=== PATIENT | male | born 1995 | race Two or more races ===

== ENCOUNTER 2016-04-27 14:34 | Emergency (ER) | payer OTHER ==
[2016-04-27 14:48] VITALS: BP 123/69; PULSE 63; RESP 16; TEMP 97.7; O2SAT 97
[2016-04-27] MEDS ORDERED: IBUPROFEN 600 MG TAB PO ONE (14:48)
--- NOTE | 2016-04-27 15:47 | UCPHY ---
H & P Time Seen by Provider: 04/27/16 15:05 Patient Type: Established HPI/ROS: 21-year-old male presents complaining of sore throat for 2 days. No associated symptoms, no cough no fever no chills. He does state that he has been more fatigued than usual. Review of systems As per HPI General no fever no chills no weakness, positive fatigue HEENT no eye pain no eye discharge. No eye redness, positive sore throat Respiratory no cough, no shortness of breath Cardiac no chest pain, no peripheral edema GI no abdominal pain, no diarrhea, no constipation, no nausea, no vomiting no flank pain, no hematuria, no dysuria Musculoskeletal no myalgias, no joint pain Heme no easy bruising, no easy bleeding Endo no polyuria, no polydipsia Skin no rashes, no pruritus Neuro no syncope, no dizziness, no headaches Psych is no suicidal ideation, no homicidal ideation Past Medical/Surgical History: Noncontributory Social History: Alcohol socially, denies drug use Smoking Status: Former smoker Physical Exam: 21-year-old male Alert and oriented in no acute distress nontoxic appearance, afebrile Atraumatic normocephalic Extraocular muscles intact, anicteric Neck-supple, positive anterior cervical lymphadenopathy mildly tender to palpation Oropharynx positive enlarged tonsils, erythematous, no uvular deviation, no purulent exudate, tolerating own secretions, no trismus Lungs clear to auscultation bilaterally Heart regular rate and rhythm Abdomen normoactive bowel sounds soft nontender Extremities no cyanosis clubbing edema Skin no rash Constitutional: Initial Vital Signs Temperature (C) 36.5 C 04/27/16 14:47 Heart Rate 63 04/27/16 14:47 Respiratory Rate 16 04/27/16 14:47 Blood Pressure 123/69 H 04/27/16 14:47 O2 Sat (%) 97 04/27/16 14:47 O2 Delivery Mode Room Air Allergies/Adverse Reactions: No Known Allergies Allergy (Verified 04/27/16 14:48) Home Medications: Medication Instructions Recorded NK [No Known Home Meds] 04/27/16 Medical Decision Making ED Course/Re-evaluation: Patient seen and evaluated for sore throat of 1-2 days duration with some fatigue otherwise no significant associated symptoms. Rapid strep negative Strep culture pending Hardeman negative Differential diagnosis considered Viral pharyngitis, strep pharyngitis, mono Impression Viral pharyngitis Plan Symptomatic care Will follow with patient if prolong strep culture is positive. - Data Points Laboratory Results: 04/27/16 04/27/16 04/27/16 Unknown 15:30 14:48 Monoscreen NEGATIVE (NEGATIVE) Group A Strep Screen NEGATIVE (NEGATIVE) Group A Strep DNA Pending Medications Given: Discontinued Medications Ibuprofen (Motrin) 600 mg PO EDNOW ONE Stop: 04/27/16 14:49 Last Admin: 04/27/16 14:49 Dose: 600 mg Departure - Departure Disposition: Home, Routine, Self-Care Clinical Impression: Acute pharyngitis Condition: Good Instructions: Pharyngitis (ED) Referrals: NONE *PRIMARY CARE P,. [Primary Care Provider] - As per Instructions Stand Alone Forms: Work Excuse - PQRS PQRS Measurement: na
== END 2016-04-27 16:00 | disposition home or self-care (01) ==
LOC: CED 14:34
DX: J02.9 Acute pharyngitis, unspecified (principal); Z87.891 Personal history of nicotine dependence
CPT/HCPCS: 86308-PO; 87880-PO; 99214-PO; G0463-PO

== ENCOUNTER 2016-05-03 13:36 | Emergency (ER) | payer OTHER ==
[2016-05-03 13:45] VITALS: BP 136/47; PULSE 65; RESP 16; TEMP 98.4; O2SAT 97
--- NOTE | 2016-05-03 14:17 | UCPHY ---
H & P Time Seen by Provider: 05/03/16 13:49 Patient Type: Established HPI/ROS: 21-year-old male presents complaining of severe left ear pain and cannot hear out of his left ear that began suddenly today. He has had a sore throat for approximately 1 week. He was seen in urgent care in tested negative for strep. Review of systems As per HPI-cold symptoms and left ear pain General no fever no chills no weakness HEENT no eye pain no eye discharge. No eye redness, positive sore throat Respiratory no cough, no shortness of breath Cardiac no chest pain, no peripheral edema GI no abdominal pain, no diarrhea, no constipation, no nausea, no vomiting no flank pain, no hematuria, no dysuria Musculoskeletal no myalgias, no joint pain Heme no easy bruising, no easy bleeding Endo no polyuria, no polydipsia Skin no rashes, no pruritus Neuro no syncope, no dizziness, no headaches Psych is no suicidal ideation, no homicidal ideation Past Medical/Surgical History: Noncontributory Social History: Denies alcohol or drug use Smoking Status: Former smoker Physical Exam: Alert and oriented nontoxic appearance, no acute distress afebrile Atraumatic normocephalic Extraocular muscles intact, anicteric Nares mild yellowish discharge Left TM erythematous bulging, left canal also erythematous Right TM and canal normal Oropharynx mild erythema no tonsillar swelling no exudate no uvular deviation, tolerating own secretions Neck supple no lymphadenopathy Lungs clear to auscultation bilaterally Heart regular rate and rhythm Abdomen normoactive bowel sounds soft nontender Extremities no cyanosis clubbing or edema Skin no rash Constitutional: Initial Vital Signs Temperature (C) 36.9 C 05/03/16 13:40 Heart Rate 65 05/03/16 13:40 Respiratory Rate 16 05/03/16 13:40 Blood Pressure 136/47 H 05/03/16 13:40 O2 Sat (%) 97 05/03/16 13:40 O2 Delivery Mode Room Air Allergies/Adverse Reactions: No Known Allergies Allergy (Verified 05/03/16 13:45) Home Medications: Medication Instructions Recorded Amoxicillin/Clavulanate Pot 875 mg PO BID #20 tab 05/03/16 [Augmentin 875 MG TAB (*)] Neomy Sulf/Polymyx B Sulf/Hc 4 drops OT TID #1 otic.btl 05/03/16 [Cortisporin Otic Suspension] Medical Decision Making ED Course/Re-evaluation: Patient seen and evaluated for left ear pain, sore throat Rapid strep negative from a few days ago. However today on physical exam he has a bulging left erythematous eardrum as well as erythema to the canal Impression Left otitis media and otitis externa Plan Augmentin twice daily times 10 days Cortisporin otic 4 drops three times daily x7 days Departure - Departure Disposition: Home, Routine, Self-Care Clinical Impression: Otitis media, Otitis externa Condition: Good Instructions: Otitis Externa (ED), Otitis Media (ED) Referrals: NONE *PRIMARY CARE P,. [Primary Care Provider] - As per Instructions Prescriptions: Amoxicillin/Clavulanate Pot [Augmentin 875 MG TAB (*)] 875 mg PO BID #20 tab Neomy Sulf/Polymyx B Sulf/Hc [Cortisporin Otic Suspension] 4 drops OT TID #1 otic.btl - PQRS PQRS Measurement: na
== END 2016-05-03 14:29 | disposition home or self-care (01) ==
LOC: CED 13:36
DX: H66.92 Otitis media, unspecified, left ear (principal); H60.502 Unspecified acute noninfective otitis externa, left ear; J02.9 Acute pharyngitis, unspecified
CPT/HCPCS: 99214-PO; G0463-PO